=== PATIENT | male | born 1975 | race Caucasian/White ===

== ENCOUNTER 2019-08-03 14:00 | Emergency (ER) | payer OTHER ==
[2019-08-03 14:25] VITALS: BMI 39.5
--- NOTE | 2019-08-03 14:27 | PDOC ---
Rapid Medical Evaluation Chief Complaint: Pain Time Seen by Provider: 08/03/19 14:25 Medical Evaluation: Allergies Allergy/AdvReac Type Severity Reaction Status Date / Time No Known Allergies Allergy Verified 08/03/19 14:19 Vital Signs Temp Pulse Resp BP Pulse Ox 98.2 F 104 H 18 157/103 H 105 H 08/03/19 14:19 10 14:19 08/03/19 14:19 08/03/19 14:19 08/03/19 14:08/03/19 14:26 I have performed a brief in-person evaluation of this patient. The patient presents with a chief complaint of: L leg pain, swelling and chest tightness. h/o varicose veins Pertinent physical exam findings: varicose veins LLE, no calf tenderness I have ordered the following: EKG, labs, LE doppler The patient will proceed to the ED for further evaluation.
[2019-08-03 15:53] LABS: BASO % 0.5 % (0-2.0); EOS % 1.5 % (0-4.5); HEMATOCRIT 44.5 % (35.4-49); HEMOGLOBIN 14.6 GM/dL (11.7-16.9); LYMPH % 13.1 % (8-40); MCH 25.9 pg (25.7-33.7); MCHC 32.8 g/dl (32.0-35.9); MEAN CELL VOLUME 78.8 fl (80-96); MEAN PLT VOLUME 8.3 fl (7.5-11.1); MONO % 9.4 % (3.8-10.2); NEUT % 75.5 % (42.8-82.8); PLATELET COUNT 247 K/MM3 (134-434); RBC 5.64 M/mm3 (4.00-5.60); RDW 13.7 % (11.9-15.9); WHITE BLOOD COUNT 5.7 K/mm3 (4.0-10.0)
--- NOTE | 2019-08-03 15:55 | PDOC ---
History of Present Illness - General Chief Complaint: Pain Stated Complaint: LT LEG PAIN Time Seen by Provider: 08/03/19 14:25 History Source: Patient Exam Limitations: No Limitations - History of Present Illness Initial Comments: 08/03/19 14:50 44-year-old male presents to ED with complaints of left lower extremity engorged varicose veins which he states has had for numerous years but never to the point of discomfort and engorgement. 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 Patient denies shortness of breath but did state when he noticed the leg he became nervous and developed a slight chest tightness which she states lasted for approximately 3 seconds and resolved without intervention. Patient denies smoking history history of DVT, or coagulation disorders. Is this a multiple visit Asthma Patient?: No Timing/Duration: constant Severity: mild Associated Symptoms: reports: chest pain, other Past History - Travel Traveled outside of the country in the last 30 days: No - Past Medical History Allergies/Adverse Reactions: Allergies Allergy/AdvReac Type Severity Reaction Status Date / Time No Known Allergies Allergy Verified 08/03/19 14:19 COPD: No - Immunization History Immunization Up to Date: Yes - Psycho Social/Smoking Cessation Hx Smoking History: Never smoked Hx Alcohol Use: No Drug/Substance Use Hx: No Patient Lives Alone: No Lives with/in: spouse/SO Review of Systems - Review of Systems Able to Perform ROS?: Yes Constitutional: No: Symptoms Reported HEENTM: No: Symptoms Reported Respiratory: No: Symptoms reported Cardiac (ROS): Yes: Chest Tightness ABD/GI: No: Symptoms Reported : No: Symptoms Reported Musculoskeletal: No: Symptoms Reported Integumentary: Yes: Lumps Neurological: No: Symptoms reported Endocrine: No: Symptoms Reported Hematologic/Lymphatic: No: Symptoms Reported *Physical Exam - Vital Signs Last Vital Signs Temp Pulse Resp BP Pulse Ox 98.2 F 104 H 18 157/103 H 105 H 08/03/19 14:19 08/03/19 14:19 08/03/19 14:19 08/03/19 14:19 08/03/19 14:19 - Physical Exam General Appearance: Yes: Nourished, Appropriately Dressed. No: Apparent Distress HEENT: negative: Pale Conjunctivae Neck: positive: Normal Thyroid Respiratory/Chest: positive: Lungs Clear, Normal Breath Sounds, Other (o2 sat 100% ra). negative: Respiratory Distress, Accessory Muscle Use Cardiovascular: positive: Regular Rhythm. negative: Tachycardia (rate 94) Vascular Pulses: Dorsalis-Pedis (R): 2+, Doralis-Pedis (L): 2+ Gastrointestinal/Abdominal: positive: Soft. negative: Tenderness Extremity: positive: Other (Noted engorged and tender vein of the left lower extremity over the great saphenous vein ) Integumentary: positive: Warm, Moist Neurologic: positive: Motor Strength 5/5 (Ambulatory) ED Treatment Course - LABORATORY CBC & Chemistry Diagram: 08/03/19 15:33 08/03/19 15:33 Medical Decision Making - Medical Decision Making 08/03/19 16:02 Chief complaint: Left lower extremity engorged veins worsening in severity over the past few months. 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 Patient denies shortness of breath but did state once he noted the swelling became concerned/anxious and then developed chest tightness which she states lasted approximately 3 minutes but resolved shortly thereafter without intervention. Exam. Patient with engorged varicosities of the left lower extremity of the great saphenous vein otherwise normal physical exam. Plan: Cardiac profile labs, ultrasound chest x-ray, and EKG 08/03/19 18:03 Laboratory Tests 08/03/19 08/03/19 08/03/19 15:33 15:33 15:33 WBC 5.7 RBC 5.64 H Hgb 14.6 Hct 44.5 Absolute Neuts (auto) 4.3 Neutrophils % 75.5 Sodium 141 Potassium 4.2 Chloride 110 H Carbon Dioxide 25 Anion Gap 7 L BUN 10.3 Creatinine 0.9 Est GFR (CKD-EPI)AfAm 119.13 Est GFR (CKD-EPI)NonAf 102.79 Random Glucose 138 H Calcium 8.7 Phosphorus 1.7 L Magnesium 2.2 Total Bilirubin 0.2 AST 17 ALT 36 Alkaline Phosphatase 93 Creatine Kinase 130 Troponin I < 0.02 Total Protein 7.3 Albumin 3.5 Ultrasound negative for DVT. Several dilated patent subcutaneous varicosities are noted along the upper anterior tibial level. The varicosities demonstrate moderate concentric wall thickening which may be on the basis of inflammation/ phlebitis. Discharge - Discharge Information Problems reviewed: Yes Clinical Impression/Diagnosis: Complicated varicose veins Condition: Good Disposition: HOME - Follow up/Referral - Patient Discharge Instructions Patient Printed Discharge Instructions: DI for Varicose Veins Additional Instructions: Elevate your leg when not walking. Wear antiembolic stocking during the day and may remove at night. If symptoms worsen despite above recommendations please return to the ED and/or follow-up with your PCP. - Post Discharge Activity Work/Back to School Note: Back to Work
[2019-08-03 16:18] LABS: ALBUMIN 3.5 g/dl (3.4-5.0); BILIRUBIN,TOTAL 0.2 mg/dL (0.2-1); BLOOD UREA NITROGEN 10.3 mg/dL (7-18); CALCIUM 8.7 mg/dL (8.5-10.1); CREATININE 0.9 mg/dL (0.55-1.3); POTASSIUM 4.2 mmol/L (3.5-5.1); TOT PROT 7.3 g/dl (6.4-8.2)
[2019-08-03 16:32] LABS: MAGNESIUM 2.2 mg/dL (1.8-2.4); PHOSPHOROUS 1.7 mg/dL (2.5-4.9)
[2019-08-03 19:22] VITALS: BP 150/92; PULSE 85; TEMP 97.1
== END 2019-08-03 19:22 | disposition home or self-care (01) ==
LOC: JER 14:00
DX: I83.812 Varicose veins of left lower extremity with pain (principal); I83.12 Varicose veins of left lower extremity with inflammation
CPT/HCPCS: 36415; 71046-TC-FY; 80053; 82550; 83735; 84100; 84484; 85025; 93971-TC; 99283-25

== ENCOUNTER 2023-09-22 09:18 | Emergency (ER) | payer OTHER ==
[2023-09-22 09:27] VITALS: BMI 38.9
[2023-09-22 11:47] VITALS: BP 141/85; PULSE 79; RESP 17; TEMP 97.3
== END 2023-09-22 11:52 | disposition home or self-care (01) ==
LOC: JER 09:18
DX: R04.0 Epistaxis (principal)
CPT/HCPCS: 99283-25

== ENCOUNTER 2024-07-25 04:40 | Emergency (ER) | payer OTHER ==
[2024-07-25 04:52] VITALS: BP 163/94; PULSE 82; RESP 18; TEMP 98.1; BMI 37.2
[2024-07-25] MEDS ORDERED: ACETAMINOPHEN 500 MG TABLET (FP) ONE (05:30)
[2024-07-25] MEDS ORDERED: LIDOCAINE 4% PATCH TP ONE (05:31)
[2024-07-25] MEDS: ACETAMINOPHEN 500 MG TABLET (FP) PO ONE (05:34)
[2024-07-25] MEDS: LIDOCAINE 5% TOPICAL PATCH TP ONE (05:34)
[2024-07-25] MEDS ORDERED: METHOCARBAMOL 500 MG TABLET ONE (08:06)
[2024-07-25] MEDS: METHOCARBAMOL 750 MG TABLET PO ONE (08:10)
[2024-07-25] MEDS ORDERED: LIDOCAINE PATCH REMOVAL MC ONE (17:00)
== END 2024-07-25 08:13 | disposition home or self-care (01) ==
LOC: JER 04:40
DX: M54.50 Low back pain, unspecified (principal); M54.2 Cervicalgia; M25.511 Pain in right shoulder; V49.09XA Driver injured in collision with other motor vehicles in nontraffic accident, initial encounter; Y92.481 Parking lot as the place of occurrence of the external cause
CPT/HCPCS: 70450-TC; 71046-TC-FY; 72125-TC; 72170-TC-FY; 73030-TC-RT-FY; 93005; 93010; 99285-25